=== PATIENT | male | born 1945 | race Two or more races ===

== ENCOUNTER → 2020-12-20 | Outpatient (CLI) | payer MEDICARE | END | disposition home or self-care (01) | LOC: MSC 13:00 | PROVIDERS: ATTEND Anesthesiology | DX: M51.36 Other intervertebral disc degeneration, lumbar region (principal); M51.26 Other intervertebral disc displacement, lumbar region; M47.27 Other spondylosis with radiculopathy, lumbosacral region; M40.299 Other kyphosis, site unspecified; M79.606 Pain in leg, unspecified ==

== ENCOUNTER 2021-01-02 11:58 | Outpatient (CLI) | payer MEDICARE | END 2021-01-02 23:59 | disposition home or self-care (01) | LOC: RAD 11:58 | PROVIDERS: ATTEND Anesthesiology | DX: Z75.3 Unavailability and inaccessibility of health-care facilities (principal) ==

== ENCOUNTER → 2021-01-17 | Outpatient (CLI) | payer MEDICARE, MEDICAID | END | disposition home or self-care (01) | LOC: MSC 11:00 | PROVIDERS: ATTEND Anesthesiology | DX: G89.29 Other chronic pain (principal); M54.5 Low back pain; M51.16 Intervertebral disc disorders with radiculopathy, lumbar region; M40.299 Other kyphosis, site unspecified; Z96.649 Presence of unspecified artificial hip joint; Z95.5 Presence of coronary angioplasty implant and graft; R20.2 Paresthesia of skin ==

== ENCOUNTER 2021-01-31 11:18 | Outpatient (CLI) | payer MEDICARE, MEDICAID | END 2021-01-31 23:59 | disposition home or self-care (01) | LOC: MSC 11:18 | PROVIDERS: ATTEND Anesthesiology | DX: M51.36 Other intervertebral disc degeneration, lumbar region (principal); M51.26 Other intervertebral disc displacement, lumbar region; M47.27 Other spondylosis with radiculopathy, lumbosacral region; M40.299 Other kyphosis, site unspecified; M79.606 Pain in leg, unspecified; Z79.01 Long term (current) use of anticoagulants; Z79.84 Long term (current) use of oral hypoglycemic drugs; Z79.899 Other long term (current) drug therapy ==

== ENCOUNTER 2021-02-10 14:35 | Outpatient (CLI) | payer MEDICARE, OTHER | END 2021-02-10 23:59 | disposition home or self-care (01) | LOC: LAB 14:35 | PROVIDERS: ATTEND Anesthesiology | DX: Z01.812 Encounter for preprocedural laboratory examination (principal); Z20.822 Contact with and (suspected) exposure to COVID-19 | CPT/HCPCS: C9803; U0003 ==

== ENCOUNTER 2021-02-14 07:16 | Day surgery (SDC) | payer MEDICARE, OTHER ==
[2021-02-14] MEDS ORDERED: LIDOCAINE HCL/MPF 1% 30 ML VIAL IJ ONE (08:41)
[2021-02-14] MEDS ORDERED: IOHEXOL 240MG/ML 50 ML IV ONE (08:41)
[2021-02-14] MEDS ORDERED: BUPIVACAINE 0.5 % PF 150 MG/30 ML VIAL ONE (08:42)
[2021-02-14] MEDS ORDERED: DEXAMETHASONE SOD PHOSPHATE 4 MG/ML VIAL ONE (08:42)
[2021-02-14] MEDS ORDERED: BUPIVACAINE 0.25% 75 MG/30 ML VIAL ONE (09:16)
[2021-02-14] MEDS ORDERED: DEXAMETHASONE SOD PHOSPHATE 10 MG/ML VIAL ONE (09:16)
[2021-02-14] MEDS ORDERED: methylPREDNISolone ACETATE 80 MG/ML VIAL ONE (09:27)
[2021-02-14] MEDS ORDERED: FENTANYL PF 100MCG/2ML AMPUL ONE (10:22)
== END 2021-02-14 11:45 | disposition home or self-care (01) ==
LOC: DS 07:16
PROVIDERS: ATTEND Anesthesiology
DX: I10 Essential (primary) hypertension (principal); I25.10 Atherosclerotic heart disease of native coronary artery without angina pectoris; M54.5 Low back pain
CPT/HCPCS: 62323; 72020; 82962; A6402; J1040; J1100; J2704; J3010; J3490 ×2; Q9966

== ENCOUNTER 2021-03-07 14:00 | Outpatient (CLI) | payer MEDICARE, OTHER | END 2021-03-07 23:59 | disposition home or self-care (01) | LOC: MSC 14:00 | PROVIDERS: ATTEND Anesthesiology | DX: M47.27 Other spondylosis with radiculopathy, lumbosacral region (principal); M51.36 Other intervertebral disc degeneration, lumbar region; M51.26 Other intervertebral disc displacement, lumbar region; M40.299 Other kyphosis, site unspecified ==